=== PATIENT | female | born 1990 | race Caucasian/White ===

== ENCOUNTER 2016-04-04 18:03 | Emergency (ER) | payer SELFPAY ==
[~2016-04-04] VITALS: Ht 165.1 cm; Wt 88.8 kg
[~2016-04-04 18:03] MED LIST: BACTRIM,SEPT1 TABLET PO; CLINDAMYCIN HC300 MG PO; CLONIDINE HCL0.1 MG PO; FLAGYL500 MG PO; FLEXERIL10 MG PO; MACROBID100 MG PO; NAPROSYN500 MG PO; NORCO 5/3251 TABLET PO; PREDNISONE20 MG PO; TRAMADOL HCL50 MG PO; TRAZODONE HCL50 MG PO; TYLENOL WITH C1 EACH PO; ULTRACET1 TABLET PO
[2016-04-04] MEDS ORDERED: GABAPENTIN300 MG PO (18:16)
[2016-04-04] MEDS ORDERED: AMITRIPTYLINE H25 MG PO (18:17)
[2016-04-04 20:11] LABS: CHLORIDE 108 mEq/L (99-109); POTASSIUM 4.1 mEq/L (3.7-5.4); SODIUM 143 mEq/L (136-147)
[2016-04-04 20:12] LABS: EOSINOPHIL (%) 0.2 % (0-5); HEMATOCRIT 41.3 % (36.0-46.0); IMMATURE GRANULOCYTE (%) 0.3 % (0.0-0.7); LYMPHOCYTE COUNT 1.5 K/uL (1.0-2.8); MCH 30.3 PG (29.0-34.0); MCHC 34.1 G/DL (30.0-36.0); MCV 88.8 FL (83-99); MEAN PLAT.VOLUME 10.7 uM^3 (9.5-12.4); MONOCYTE (%) 6.8 % (3-12); NEUTROPHIL (%) 82.7 % (45-76); NEUTROPHIL COUNT 12.2 K/uL (1.8-6.4); PLATELET COUNT 244 K/uL (156-360); RBC DIS.WIDTH-CV 12.3 % (11.8-14.6); RED BLOOD COUNT 4.65 M/uL (3.80-5.20); WHITE BLOOD COUNT 14.7 K/uL (4.1-10.2)
[2016-04-04 20:13] LABS: GLUCOSE 93 mg/dL (70-99)
[2016-04-04 20:15] LABS: ANION GAP 9 MEQ/L (2-14); TOTAL BILIRUBIN 0.4 mg/dL (0.0-1.0)
[2016-04-04 20:17] LABS: ALKALINE PHOSPHATASE 78 IU/L (3-129); GFR ESTIMATE (CALCULATED) > 59 mL/min/
[2016-04-04 20:18] LABS: UREA NITROGEN (BUN) 12 mg/dL (9-23)
[2016-04-04 20:27] LABS: QUANTITATIVE HCG < 4.0 MIU/ML
[2016-04-04] MEDS ORDERED: CEFTIN500 MG PO (21:52)
[2016-04-04] MEDS ORDERED: ZITHROMAX500 MG PO (21:52)
[2016-04-04 22:32] VITALS: BP 121/83
== END 2016-04-04 22:34 | disposition home or self-care (01) ==
LOC: EME 18:03
PROVIDERS: Emergency Medicine
DX: T40.1X1A Poisoning by heroin, accidental (unintentional), initial encounter (principal); F17.200 Nicotine dependence, unspecified, uncomplicated; Z71.6 Tobacco abuse counseling; Z88.6 Allergy status to analgesic agent
CPT/HCPCS: 70450; 80053; 84702; 85025; 99281; 99285; J7030